=== PATIENT | female | born 1995 ===

== ENCOUNTER 2021-06-28 16:11 | Outpatient (CLI) | payer OTHER | END 2021-06-28 16:58 | disposition home or self-care (01) | LOC: PRENATAL 16:11 | PROVIDERS: ATTEND Obstetrics & Gynecology Maternal & Fetal Medicine | DX: O35.0XX1 Maternal care for (suspected) central nervous system malformation in fetus, fetus 1 (principal); O35.3XX1 Maternal care for (suspected) damage to fetus from viral disease in mother, fetus 1; O98.512 Other viral diseases complicating pregnancy, second trimester; Z36.89 Encounter for other specified antenatal screening; Z3A.20 20 weeks gestation of pregnancy ==